=== PATIENT | female | born 1995 | race American Indian/Alaskan Native ===

== ENCOUNTER 2018-05-11 20:16 | Emergency (ER) | payer SELFPAY ==
[2018-05-11 21:41] VITALS: BP 128/77
[2018-05-11] MEDS ORDERED: ASPIRIN PO ONE (21:41)
[2018-05-11 22:23] LABS: Basophils % (Auto) 0.6 % (0.0-1.8); Eosinophils # (Auto) 0.1 K/mm3 (0.0-0.4); Eosinophils % (Auto) 1.2 % (0.0-4.3); Hemoglobin 11.5 gm/dl (10.1-14.3); Lymphocytes % (Auto) 43.5 % (13.4-35.0); Mean Corpuscular HGB Conc 33 % (30-34); Mean Corpuscular Volume 77 fl (79-97); Monocytes # (Auto) 0.4 K/mm3 (0.0-0.8); Monocytes % (Auto) 5.2 % (0.0-7.3); Platelet Count 254 K/mm3 (140-440); Red Blood Count 4.56 M/mm3 (3.65-5.03)
[2018-05-11 22:28] LABS: Mean Corpuscular Hemoglobin 25 pg (28-32)
[2018-05-11 22:36] LABS: BUN/Creatinine Ratio 13; Blood Urea Nitrogen 9 mg/dL (7-17); Calcium 9.4 mg/dL (8.4-10.2); Hemolysis Index 11
== END 2018-05-12 00:58 | disposition left against medical advice (07) ==
LOC: ED 20:16
DX: R07.89 Other chest pain (principal); Z53.21 Procedure and treatment not carried out due to patient leaving prior to being seen by health care provider
CPT/HCPCS: 36415; 80048; 84484; 85025; 93005; 93010